=== PATIENT | male | born 1965 | race Caucasian/White ===

== ENCOUNTER 2016-12-07 09:30 | Emergency (ER) | payer OTHER ==
[2016-12-07] MEDS ORDERED: SODIUM CHLORIDE 0.9% 1,000 ML ONE (10:10)
== END 2016-12-07 12:04 | disposition home or self-care (01) ==
LOC: ER 09:30
DX: R55 Syncope and collapse (principal)
CPT/HCPCS: 36415 ×2; 71020 ×2; 80053 ×2; 82553 ×2; 84484 ×2; 85025 ×2; 85610 ×2; 85730 ×2; 93005 ×2; 96360 ×2; 96361 ×2; 99285; G0479